=== PATIENT | male | born 1940 | race Caucasian/White ===

== ENCOUNTER 2021-01-17 11:31 | Emergency (ER) | payer OTHER ==
[~2021-01-17] VITALS: Ht 160 cm; Wt 77.1 kg
[2021-01-17] MEDS ORDERED: FORTAMET500 MG (11:56)
[2021-01-17] MEDS ORDERED: ADULT ASPIRIN81 MG PO (12:20)
[2021-01-17] MEDS ORDERED: IBU600 MG PO (12:20)
[2021-01-17] MEDS ORDERED: DICLOFONO2.5 GM TP (12:21)
[2021-01-17] MEDS ORDERED: TRIAMCINOLONE16.9 ML NASAL (12:22)
[2021-01-17] MEDS ORDERED: PROAIR RESPICL90 MCG IH (12:22)
[2021-01-17] MEDS ORDERED: BUSPIRONE HCL10 MG PO (12:23)
[2021-01-17] MEDS ORDERED: GLYCOPYRROLATE2 MG (12:23)
[2021-01-17] MEDS ORDERED: COZAAR100 MG PO (12:24)
[2021-01-17] MEDS ORDERED: LASIX20 MG PO (16:03)
== END 2021-01-17 17:35 | disposition home or self-care (01) ==
LOC: ER 11:31
DX: I70.293 Other atherosclerosis of native arteries of extremities, bilateral legs (principal); I87.2 Venous insufficiency (chronic) (peripheral); R60.0 Localized edema